=== PATIENT | male | born 1960 | race Caucasian/White ===

== ENCOUNTER 2024-02-19 08:31 | Outpatient (CLI) | payer OTHER, SELFPAY ==
[2024-02-19 08:50] LABS: Abs Immature Grans 0.02 10^3/uL (0.0-0.06); Absolute Basophil Count 0.03 10^3/uL (0.0-0.2); Absolute Eosinophil Count 0.28 10^3/uL (0.0-0.7); Absolute Lymphocyte Count 1.37 10^3/uL (1.2-3.4); Absolute Monocyte Count 0.56 10^3/uL (0.1-0.8); Absolute Neutrophil Count 5.95 10^3/uL (1.2-6.7); Basophils % 0.4; Eosinophils % 3.4; HCT 41.8 % (40.0-50.0); HGB 13.5 g/dL (13.5-17.5); Immature Grans % 0.2; Lymphocytes % 16.7; MCH 28.8 pg (27.0-33.0); MCHC 32.3 % (32.0-36.0); MCV 89 fL (80-95); MPV 9.7 fL (8.0-11.0); Monocytes % 6.8; Neutrophils % 72.5; Platelet Count 231 10^3/uL (130-400); RBC 4.68 10^6/uL (4.36-5.78); RDW 12.8 % (11.8-14.1); RDW-SD 41.9 fL; WBC 8.21 10^3/uL (4.4-10.8)
[2024-02-19 09:09] LABS: ALT 25 U/L (16-63); AST 14 U/L (15-37); Albumin 3.9 g/dL (3.4-5.0); Alkaline Phosphatase 86 U/L (46-116); Anion Gap 8.5 mmol/L (3-11); BUN 19 mg/dL (7-18); Bilirubin, Total 0.6 mg/dL (0.2-1.0); CO2 28.5 mmol/L (21.0-32.0); Chloride 104 mmol/L (98-107); Estimated GFR 85.63 (mL/min/1.73m2); Glucose 181 mg/dL (74-106); LDH 141 U/L (85-227); Potassium 4.2 mmol/L (3.5-5.1); Sodium 141 mmol/L (136-145); Total Protein 7.9 g/dL (6.4-8.2)
== END 2024-02-19 08:32 | disposition home or self-care (01) ==
LOC: LBO 08:32
PROVIDERS: Visit Provider Internal Medicine Hematology & Oncology
DX: C82.18 Follicular lymphoma grade II, lymph nodes of multiple sites (principal)
CPT/HCPCS: 36415; 80053; 83615; 85025

== ENCOUNTER 2024-05-20 04:46 | Outpatient (CLI) | payer OTHER, SELFPAY ==
[2024-05-20 10:39] LABS: Abs Immature Grans 0.01 10^3/uL (0.0-0.06); Absolute Basophil Count 0.05 10^3/uL (0.0-0.2); Absolute Lymphocyte Count 1.51 10^3/uL (1.2-3.4); Basophils % 0.8 %; Eosinophils % 6.3 %; HCT 38.7 % (40.0-50.0); HGB 12.4 g/dL (13.5-17.5); Immature Grans % 0.2 %; Lymphocytes % 23.7 %; MCH 27.7 pg (27.0-33.0); MCV 86 fL (80-95); MPV 9.7 fL (8.0-11.0); Monocytes % 7.8 %; Neutrophils % 61.2 %; Platelet Count 217 10^3/uL (130-400); RBC 4.48 10^6/uL (4.36-5.78); RDW 13.6 % (11.8-14.1); RDW-SD 42.5 fL; WBC 6.37 10^3/uL (4.4-10.8)
[2024-05-20 11:19] LABS: ALT 30 U/L (16-63); AST 19 U/L (15-37); Albumin 3.7 g/dL (3.4-5.0); Alkaline Phosphatase 69 U/L (46-116); Anion Gap 8.2 mmol/L (3-11); BUN 25 mg/dL (7-18); Bilirubin, Total 0.7 mg/dL (0.2-1.0); CO2 26.8 mmol/L (21.0-32.0); CREATININE 1.1 mg/dL (0.70-1.30); Chloride 105 mmol/L (98-107); Glucose 155 mg/dL (74-106); LDH 148 U/L (85-227); Potassium 4.5 mmol/L (3.5-5.1); Sodium 140 mmol/L (136-145); Total Protein 7.3 g/dL (6.4-8.2)
[2024-05-20 14:11] LABS: Calculated LDL 54 mg/dL (<100); Cholesterol 117 mg/dL (<200); HDL Cholesterol 42 mg/dL (40-60); Triglyceride 106 mg/dL (<150)
[2024-05-20 14:19] LABS: Hemoglobin A1C 8.5 % (<5.7)
[2024-05-20 16:39] LABS: Reticulocyte 1.7 % (0.5-2.4)
[2024-05-20 17:14] LABS: Ferritin 10 ng/mL (26-388); Folate > 20.0 ng/mL (8.6-20.0); Vitamin B12 431 pg/mL (193-986)
== END 2024-05-20 04:47 | disposition home or self-care (01) ==
LOC: LBO 04:46
PROVIDERS: Visit Provider Internal Medicine Hematology & Oncology
DX: C82.18 Follicular lymphoma grade II, lymph nodes of multiple sites (principal); D64.9 Anemia, unspecified
CPT/HCPCS: 36415; 80053; 80061; 82607; 82728; 82746; 83036; 83615; 85025; 85045

== ENCOUNTER 2024-06-03 02:43 | Outpatient (CLI) | payer OTHER, SELFPAY ==
[2024-06-03 13:30] LABS: Abs Immature Grans 0.01 10^3/uL (0.0-0.06); Absolute Basophil Count 0.05 10^3/uL (0.0-0.2); Absolute Lymphocyte Count 1.71 10^3/uL (1.2-3.4); Absolute Monocyte Count 0.68 10^3/uL (0.1-0.8); Absolute Neutrophil Count 4.24 10^3/uL (1.2-6.7); Basophils % 0.7 %; Eosinophils % 9.5 %; HCT 39.1 % (40.0-50.0); HGB 12.9 g/dL (13.5-17.5); Immature Grans % 0.1 %; Lymphocytes % 23.1 %; MCH 28.2 pg (27.0-33.0); MCV 85 fL (80-95); MPV 9.9 fL (8.0-11.0); Monocytes % 9.2 %; Neutrophils % 57.4 %; Platelet Count 232 10^3/uL (130-400); RBC 4.58 10^6/uL (4.36-5.78); RDW 13.4 % (11.8-14.1); RDW-SD 41.7 fL; WBC 7.39 10^3/uL (4.4-10.8)
[2024-06-03 13:48] LABS: Hemoglobin A1C 8.3 % (<5.7)
[2024-06-03 14:18] LABS: ALT 36 U/L (16-63); AST 20 U/L (15-37); Albumin 3.9 g/dL (3.4-5.0); Alkaline Phosphatase 64 U/L (46-116); Anion Gap 9.3 mmol/L (3-11); BUN 29 mg/dL (7-18); Bilirubin, Total 0.95 mg/dL (0.2-1.0); CO2 26.7 mmol/L (21.0-32.0); CREATININE 1.2 mg/dL (0.70-1.30); Calcium 8.9 mg/dL (8.5-10.1); Chloride 105 mmol/L (98-107); Estimated GFR 68.38 (mL/min/1.73m2); Glucose 80 mg/dL (74-106); LDH 170 U/L (85-227); Potassium 4.6 mmol/L (3.5-5.1); Sodium 141 mmol/L (136-145); Total Protein 7.5 g/dL (6.4-8.2)
[2024-06-03 14:37] LABS: Iron 50 ug/dL (65-175); Total Iron Binding Capacity 451 ug/dL (250-450); Transferrin Sat 11 % (20-55)
[2024-06-04 09:32] LABS: Haptoglobin 91 mg/dL (32-197)
[2024-06-05 14:59] LABS: Erythropoietin 23.4 mIU/mL (2.6 - 18.5)
[2024-06-07 17:50] LABS: Testosterone, Total 245 ng/dL (240-950)
== END 2024-06-03 02:44 | disposition home or self-care (01) ==
LOC: LBO 02:43
PROVIDERS: Visit Provider Internal Medicine Hematology & Oncology
DX: C82.18 Follicular lymphoma grade II, lymph nodes of multiple sites (principal); D64.9 Anemia, unspecified; E11.9 Type 2 diabetes mellitus without complications
CPT/HCPCS: 36415; 80053; 82668; 84403; 83010; 83036; 83540; 83550; 83615; 85025

== ENCOUNTER 2024-08-26 01:51 | Outpatient (CLI) | payer OTHER, SELFPAY ==
--- NOTE | 2024-08-26 | DI.CT_ITS ---
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 Pulmonary parenchyma: There is a small infiltrate in the left lingula which may represent atelectasis or pneumonia. The lungs are otherwise clear. No architectural distortion. Visualized thyroid gland: Unremarkable. Mediastinum and Rachel: No dominant adenopathy or fluid collection. The esophagus is unremarkable. Pleura: No effusion or pneumothorax. Heart: Status post CABG. Heart is at the upper limits of normal in size. Coronary artery calcificat ions are present. No pericardial effusion. Pulmonary arteries: No pulmonary emboli are identified. Aorta: Thoracic aorta non-dilated. No evidence of dissection. Atherosclerotic calcification is prese nt. Lymph nodes: Within normal limits. Soft tissues: Unremarkable. Bones:Within normal limits for the patient's age. Sternal wires are in place. ABDOMEN: Liver: Normal density. No measurable mass. Portal, Superior Mesenteric, and Splenic Veins: Unremarkable. Gallbladder and Biliary Tract: There are multiple stones seen layering in the gallbladder. There is no biliary ductal dilatation. Pancreas: Normal density, no abnormal calcifications or inflammatory process. Spleen: Normal. Adrenals: No masses seen. Kidneys: Normal size, contour and axis. No radiodense stones or obstructive uropathy. Stable bilatera l renal cysts. No follow-up is recommended. Abdominal Aorta: Abdominal portion non-dilated. Atherosclerotic calcification is present. Bowel: No obstruction or bowel wall thickening. No evidence of appendicitis. Peritoneal Cavity: No ascites, collection or mesenteric inflammatory response. No free air. Lymph Nodes: There is again seen mesenteric adenopathy. There is been an overall decrease in size an d number of the mesenteric lymph nodes since the prior examination. There was a lymph nodes seen in the mesentery previously measuring 2.2 cm which now measures 1.2 cm (series 16, image 44). No new ab dominal or pelvic adenopathy is present. Bones: Within normal limits for the patient's age. Soft Tissues: Unremarkable. PELVIS: Bladder: The urinary bladder is incompletely distended. There is thickening of the wall of the urina ry bladder. This may be due to underdistention, however, cystitis or chronic bladder outlet obstruct ion may also have this appearance. Please correlate clinically. There is again seen a diverticulum at the posterior superior urinary bladder. Reproductive Organs: Unremarkable as visualized. Lymph Nodes: Within normal limits. Bones: Within normal limits. IMPRESSION: 1. Overall slight interval decrease in size and number of the mesenteric adenopathy since 02/14/2024. 2. No evidence of thoracic adenopathy. 3. Small infiltrate in the left lingula. 4. No acute abdominal or pelvic process. 5. Please see the above discussion for complete details. RADIATION DOSE DELIVERED: 766.32mGy.cm Total DLP DATA REPOSITORY: All CT scans at this facility are submitted to the National Radiology Data Registry (NRDR) Dose Index Registry (DIR) with the [employer] ([employer]). RADIATION OPTIMIZATION: All CT scans at this facility use at least one of these dose optimization te chniques: automated exposure control; mA and/or kV adjustment per patient size (includes targeted exa ms where dose is matched to clinical indication); or iterative reconstruction.
[2024-08-26] MEDS: Barium Sulfate 2% W/V-Berry Smoothie 450 ML BTL PO ×2 (07:43→07:44)
[2024-08-26 08:08] LABS: Abs Immature Grans 0.02 10^3/uL (0.0-0.06); Absolute Basophil Count 0.04 10^3/uL (0.0-0.2); Absolute Eosinophil Count 0.37 10^3/uL (0.0-0.7); Absolute Lymphocyte Count 1.08 10^3/uL (1.2-3.4); Absolute Monocyte Count 0.46 10^3/uL (0.1-0.8); Absolute Neutrophil Count 3.17 10^3/uL (1.2-6.7); Basophils % 0.8 %; Eosinophils % 7.2 %; HCT 46.9 % (40.0-50.0); HGB 15.1 g/dL (13.5-17.5); Immature Grans % 0.4 %; MCH 28.5 pg (27.0-33.0); MCHC 32.2 % (32.0-36.0); MCV 89 fL (80-95); MPV 9.4 fL (8.0-11.0); Monocytes % 8.9 %; Neutrophils % 61.7 %; Platelet Count 203 10^3/uL (130-400); RDW-SD 48.7 fL; WBC 5.14 10^3/uL (4.4-10.8)
[2024-08-26 08:27] LABS: ALT 37 U/L (16-63); AST 25 U/L (15-37); Albumin 3.9 g/dL (3.4-5.0); Alkaline Phosphatase 68 U/L (46-116); Anion Gap 5.5 mmol/L (3-11); BUN 26 mg/dL (7-18); Bilirubin, Total 0.73 mg/dL (0.2-1.0); CO2 31.5 mmol/L (21.0-32.0); CREATININE 1.4 mg/dL (0.70-1.30); Calcium 8.8 mg/dL (8.5-10.1); Chloride 105 mmol/L (98-107); Estimated GFR 56.83 (mL/min/1.73m2); Glucose 131 mg/dL (74-106); LDH 168 U/L (85-227); Sodium 142 mmol/L (136-145); Total Protein 7.7 g/dL (6.4-8.2)
[2024-08-26] MEDS: Normal Saline - Diluent 50 ML VIAL IJ (10:01)
[2024-08-26] MEDS: Omnipaque 350 MG/ML 100 ML BTL IJ (10:01)
== END 2024-08-26 02:11 ==
LOC: DI 01:51
PROVIDERS: Visit Provider Nurse Practitioner Adult Health
DX: C82.18 Follicular lymphoma grade II, lymph nodes of multiple sites (principal)
CPT/HCPCS: 74177; 80053; 71260; 83615; 85025; J3490

== ENCOUNTER 2024-09-02 12:11 | Outpatient (CLI) | payer OTHER, SELFPAY ==
[2024-09-02 12:31] LABS: Abs Immature Grans 0.02 10^3/uL (0.0-0.06); Absolute Basophil Count 0.03 10^3/uL (0.0-0.2); Absolute Eosinophil Count 0.38 10^3/uL (0.0-0.7); Absolute Lymphocyte Count 1.46 10^3/uL (1.2-3.4); Absolute Monocyte Count 0.54 10^3/uL (0.1-0.8); Absolute Neutrophil Count 3.76 10^3/uL (1.2-6.7); Basophils % 0.5 %; Eosinophils % 6.1 %; HCT 43.6 % (40.0-50.0); HGB 14.1 g/dL (13.5-17.5); Immature Grans % 0.3 %; Lymphocytes % 23.6 %; MCH 28.6 pg (27.0-33.0); MCHC 32.3 % (32.0-36.0); MCV 88 fL (80-95); MPV 8.9 fL (8.0-11.0); Monocytes % 8.7 %; Neutrophils % 60.8 %; Platelet Count 191 10^3/uL (130-400); RBC 4.93 10^6/uL (4.36-5.78); RDW 14.6 % (11.8-14.1); RDW-SD 47.5 fL; WBC 6.19 10^3/uL (4.4-10.8)
[2024-09-02 12:59] LABS: ALT 27 U/L (16-63); AST 17 U/L (15-37); Albumin 3.6 g/dL (3.4-5.0); Alkaline Phosphatase 72 U/L (46-116); Anion Gap 7.9 mmol/L (3-11); BUN 32 mg/dL (7-18); Bilirubin, Total 0.64 mg/dL (0.2-1.0); CO2 28.1 mmol/L (21.0-32.0); CREATININE 1.3 mg/dL (0.70-1.30); Calcium 9.2 mg/dL (8.5-10.1); Chloride 102 mmol/L (98-107); Estimated GFR 62.11 (mL/min/1.73m2); Glucose 74 mg/dL (74-106); LDH 151 U/L (85-227); Potassium 4.2 mmol/L (3.5-5.1); Sodium 138 mmol/L (136-145); Total Protein 7.5 g/dL (6.4-8.2)
== END 2024-09-02 12:12 | disposition home or self-care (01) ==
LOC: LBO 12:14
PROVIDERS: Visit Provider Internal Medicine Hematology & Oncology
DX: C82.18 Follicular lymphoma grade II, lymph nodes of multiple sites (principal)
CPT/HCPCS: 36415; 80053; 83615; 85025